=== PATIENT | female | born 1980 | race Caucasian/White ===

== ENCOUNTER 2017-12-20 21:05 | Emergency (ER) | payer SELFPAY ==
[~2017-12-20] VITALS: Ht 165.1 cm; Wt 94.1 kg
[~2017-12-20 21:05] MED LIST: BACTRIM DS 8001 TAB PO; CEPHALEXIN500 M1 PO; DOXYCYCLINE 10100 MG PO; LORTAB 5/500 501 TAB PO; MIRENA52 MG IU; NO HOME MEDICATIONS; PERCOCET 325 MG1 TA2 PO; ULTRAM 50MG TAB50 MG PO
[2017-12-20 21:42] LABS: COLLECTION METHOD CLEAN CATCH
[2017-12-20 21:44] LABS: HEMATOCRIT 39.6 % (37.0-47.0); HEMOGLOBIN 13.4 g/dl (12.5-16.0); MEAN CELL VOLUME 87 fl (80.0-100.0); MEAN CORPUSCULAR HEMOGLOBIN 30 pg (27.0-31.0); MEAN CORPUSCULAR HGB CONC 34 g/dl (33.0-37.0); MEAN PLATELET VOLUME 10.2 fl (7.4-10.4); PLATELET COUNT 331 K/mm3 (130-400); RED BLOOD COUNT 4.53 M/mm3 (4.10-5.30)
[2017-12-20 21:47] LABS: MUCOUS Present /lpf; PH 5 (5-8); SQUAMOUS EPITHELIAL 0-2 /hpf; URINE APPEARANCE Hazy; URINE BACTERIA Rare /hpf; URINE BILIRUBIN Negative (NEGATIVE); URINE BLOOD Negative (NEGATIVE); URINE COLOR Yellow; URINE GLUCOSE 2+ (NEGATIVE); URINE KETONE Negative (NEGATIVE); URINE LEUKOCYTE ESTERASE Negative (NEGATIVE); URINE NITRATE Negative (NEGATIVE); URINE PROTEIN(semi-quant) 1+ (NEGATIVE); URINE RBC 0-2 /hpf; URINE UROBILINOGEN Negative (NEGATIVE)
[2017-12-20 21:56] LABS: BILIRUBIN,TOTAL 0.4 mg/dL (0.0-1.0); C-REACTIVE PROTEIN 1.1 mg/dL (0.0-0.9); CALCIUM 9.6 mg/dL (8.4-10.2); CREATININE, serum 0.54 mg/dL (0.52-1.25); POTASSIUM 3.5 mmol/L (3.4-5.0); TOTAL PROTEIN 9.4 gm/dL (6.4-8.2)
[2017-12-20] MEDS ORDERED: LEVAQUIN 750MG750 M1 PO (22:14)
[2017-12-20] MEDS ORDERED: ZOFRAN 4MG T4 MG/TAB PO (22:15)
[2017-12-20] MEDS ORDERED: NORVASC 5MG5 MG/TAB PO (22:16)
[2017-12-20 22:23] LABS: BAND 11 % (0-10); EOSINOPHIL 1 % (0-4); LYMPHOCYTE 28 % (20.0-51.0); NEUTROPHILS 59 % (42.0-75.2)
[2017-12-20 22:24] LABS: PLATELET ESTIMATE NORMAL (NORMAL)
[2017-12-20 23:12] VITALS: BP 135/91; PULSE 94; TEMP 99
== END 2017-12-20 23:13 | disposition home or self-care (01) ==
LOC: COL.ER 21:05
PROVIDERS: Emergency Medicine
DX: J18.1 Lobar pneumonia, unspecified organism (principal); J06.9 Acute upper respiratory infection, unspecified; I10 Essential (primary) hypertension
CPT/HCPCS: J1885; J7030